=== PATIENT | female | born 1975 | race Caucasian/White ===

== ENCOUNTER 2016-12-11 16:18 | Emergency (ER) | payer BC ==
[2016-12-11 17:36] LABS: HEMOGLOBIN 13.4 gm/dl (12.3-15.3); RED BLOOD COUNT 4.09 M/UL (4.00-5.10)
[2016-12-11 17:52] LABS: BUN/CREATININE RATIO 17 (0-10)
== END 2016-12-11 19:45 | disposition home or self-care (01) ==
LOC: ER1 16:18
PROVIDERS: Preventive Medicine Occupational Medicine
DX: B27.90 Infectious mononucleosis, unspecified without complication (principal); Z87.891 Personal history of nicotine dependence
CPT/HCPCS: 36415; 80053; 85025; 99284; J7030